=== PATIENT | male | born 1975 | race African-American/Black ===

== ENCOUNTER 2020-09-23 11:18 | Inpatient (IN) | payer OTHER ==
[2020-09-23 11:55] VITALS: BMI 20.7
[2020-09-23] MEDS ORDERED: MAGNESIUM HYDROX 2400MG/30ML ORAL SUSPENSION 30 ML CUP PO PRN (17:16)
[2020-09-23] MEDS ORDERED: NALOXONE HCL 0.4 MG/ML VIAL IM PRN (17:16)
[2020-09-23] MEDS ORDERED: P-EPHED 60MG/TRIPROLIDI 2.5MG TABLET PO PRN (17:16)
[2020-09-23] MEDS ORDERED: LOPERAMIDE HCL 2 MG CAPSULE PO PRN (17:16)
[2020-09-23] MEDS ORDERED: guaiFENesin 200 MG/10 ML 10 ML UNIT-DOSE CUPS PO PRN (17:16)
[2020-09-23] MEDS ORDERED: MAG HYDROX/AL HYDROX/SIMETH 30 ML UNIT-DOSE CUP PO PRN (17:16)
[2020-09-23] MEDS ORDERED: NICOTINE POLACRILEX 2 MG GUM BC PRN (17:16)
[2020-09-23] MEDS ORDERED: MAGNESIUM CITRATE 300 ML BOTTLE PO PRN (17:16)
[2020-09-23] MEDS ORDERED: ACETAMINOPHEN 325 MG TABLET (FP) PO PRN (17:16)
[2020-09-23] MEDS: hydrOXYzine PAMOATE 25 MG CAPSULE (FP) PO SCH ×2 (18:23→23:13)
[2020-09-23] MEDS: PRENATAL VITAMINS W/ FOLIC ACID TABLET (FP) PO SCH (18:23)
[2020-09-23] MEDS: NICOTINE 21 MG/24 HOURS TOPICAL PATCH TD SCH (18:25)
[2020-09-23] MEDS: MELATONIN 5 MG TABLETS PO SCH (23:12)
[2020-09-23] MEDS: THIAMINE HCL 100 MG TABLET (FP) PO SCH (23:13)
[2020-09-24] MEDS: hydrOXYzine PAMOATE 25 MG CAPSULE (FP) PO SCH ×3 (06:38→13:52)
[2020-09-24] MEDS: NICOTINE 21 MG/24 HOURS TOPICAL PATCH TD SCH (09:39)
[2020-09-24] MEDS: PRENATAL VITAMINS W/ FOLIC ACID TABLET (FP) PO SCH (09:39)
[2020-09-24] MEDS: IBUPROFEN 400 MG TABLET (FP) PO PRN (10:03)
[2020-09-24] MEDS ORDERED: PT OWN MED DRAWER 7, Y5N ONE ×2 (10:09→20:47)
[2020-09-24 11:03] LABS: CALCIUM 9.1 mg/dL (8.5-10.1); HEMATOCRIT 43.8 % (35.4-49); MCH 32.5 pg (25.7-33.7); MCHC 34.2 g/dl (32.0-35.9); MEAN PLT VOLUME 9.6 fl (7.5-11.1); PLATELET COUNT 215 K/MM3 (134-434); RBC 4.61 M/mm3 (4.00-5.60); RDW 13.8 % (11.9-15.9); WHITE BLOOD COUNT 5.8 K/mm3 (4.0-10.0)
[2020-09-24 11:04] LABS: ALBUMIN 3.8 g/dl (3.4-5.0); BLOOD UREA NITROGEN 10.2 mg/dL (7-18)
[2020-09-24 11:07] LABS: CREATININE 1.2 mg/dL (0.55-1.3)
[2020-09-24 11:09] LABS: BILIRUBIN,TOTAL 0.8 mg/dL (0.2-1)
[2020-09-24] MEDS ORDERED: hydrOXYzine PAMOATE 25 MG CAPSULE (FP) PO PRN (14:20)
[2020-09-24 14:42] LABS: PH,URINE 6.5 (5.0-8.0); URINE APPEARANCE CLEAR; URINE BILIRUBIN NEGATIVE (NEGATIVE); URINE COLOR YELLOW; URINE GLUCOSE (UA) NEGATIVE (NEGATIVE); URINE KETONE NEGATIVE (NEGATIVE); URINE LEUK ESTERASE NEGATIVE (NEGATIVE); URINE NITRITE NEGATIVE (NEGATIVE); URINE PROTEIN NEGATIVE (NEGATIVE)
[2020-09-24] MEDS: LIDOCAINE VISCOUS 2% ORAL/TOP 20 ML UNIT-DOSE CUP MM PRN (17:49)
[2020-09-24] MEDS: AMOXICILLIN 500 MG CAPSULE (FP) PO SCH (21:11)
[2020-09-24] MEDS: THIAMINE HCL 100 MG TABLET (FP) PO SCH (21:12)
[2020-09-24] MEDS: MELATONIN 5 MG TABLETS PO SCH (21:12)
[2020-09-25] MEDS ORDERED: PT OWN MED DRAWER 7, Y5N ONE ×4 (03:17→20:32)
[2020-09-25] MEDS: AMOXICILLIN 500 MG CAPSULE (FP) PO SCH ×3 (06:43→21:34)
[2020-09-25] MEDS: NICOTINE 21 MG/24 HOURS TOPICAL PATCH TD SCH (09:46)
[2020-09-25] MEDS: PRENATAL VITAMINS W/ FOLIC ACID TABLET (FP) PO SCH (09:46)
[2020-09-25] MEDS: SODIUM CHLORIDE NASAL SPRAY 44 ML BOTTLE NS PRN ×2 (09:47→21:34)
[2020-09-25] MEDS: LIDOCAINE VISCOUS 2% ORAL/TOP 20 ML UNIT-DOSE CUP MM PRN (21:34)
[2020-09-25] MEDS: MELATONIN 5 MG TABLETS PO SCH (21:35)
[2020-09-25] MEDS: THIAMINE HCL 100 MG TABLET (FP) PO SCH (21:35)
[2020-09-26] MEDS ORDERED: PT OWN MED DRAWER 7, Y5N ONE ×4 (03:37→18:34)
[2020-09-26] MEDS: AMOXICILLIN 500 MG CAPSULE (FP) PO SCH ×3 (06:55→21:19)
[2020-09-26] MEDS: NICOTINE 21 MG/24 HOURS TOPICAL PATCH TD SCH (09:48)
[2020-09-26] MEDS: PRENATAL VITAMINS W/ FOLIC ACID TABLET (FP) PO SCH (09:48)
[2020-09-26] MEDS: SODIUM CHLORIDE NASAL SPRAY 44 ML BOTTLE NS PRN (09:48)
[2020-09-26] MEDS ORDERED: HYDROCORTISONE 1% TOPICAL CREAM 30 GM TUBE TP PRN (14:27)
[2020-09-26] MEDS: THIAMINE HCL 100 MG TABLET (FP) PO SCH (21:18)
[2020-09-26] MEDS: MELATONIN 5 MG TABLETS PO SCH (21:19)
[2020-09-27] MEDS ORDERED: PT OWN MED DRAWER 7, Y5N ONE ×2 (03:17→19:55)
[2020-09-27] MEDS: AMOXICILLIN 500 MG CAPSULE (FP) PO SCH ×3 (06:35→21:05)
[2020-09-27] MEDS: PRENATAL VITAMINS W/ FOLIC ACID TABLET (FP) PO SCH (09:36)
[2020-09-27] MEDS: NICOTINE 21 MG/24 HOURS TOPICAL PATCH TD SCH (09:36)
[2020-09-27] MEDS: IBUPROFEN 400 MG TABLET (FP) PO PRN (09:38)
[2020-09-27] MEDS: SODIUM CHLORIDE NASAL SPRAY 44 ML BOTTLE NS PRN ×2 (09:39→21:06)
[2020-09-27 10:07] LABS: SARS-CoV-2 NAA Not Detected (Not Detected)
[2020-09-27] MEDS: THIAMINE HCL 100 MG TABLET (FP) PO SCH (21:06)
[2020-09-27] MEDS: MELATONIN 5 MG TABLETS PO SCH (21:06)
[2020-09-28] MEDS: AMOXICILLIN 500 MG CAPSULE (FP) PO SCH ×3 (06:35→21:06)
[2020-09-28] MEDS: NICOTINE 21 MG/24 HOURS TOPICAL PATCH TD SCH (09:22)
[2020-09-28] MEDS: PRENATAL VITAMINS W/ FOLIC ACID TABLET (FP) PO SCH (09:23)
[2020-09-28] MEDS: SODIUM CHLORIDE NASAL SPRAY 44 ML BOTTLE NS PRN (09:23)
[2020-09-28] MEDS: IBUPROFEN 400 MG TABLET (FP) PO PRN ×2 (09:23→21:08)
[2020-09-28] MEDS ORDERED: PT OWN MED DRAWER 7, Y5N ONE ×2 (13:01→19:24)
[2020-09-28] MEDS: THIAMINE HCL 100 MG TABLET (FP) PO SCH (21:06)
[2020-09-28] MEDS: MELATONIN 5 MG TABLETS PO SCH (21:08)
[2020-09-29 07:32] VITALS: TEMP 97.3
[2020-09-29] MEDS: AMOXICILLIN 500 MG CAPSULE (FP) PO SCH (07:44)
[2020-09-29] MEDS ORDERED: PT OWN MED DRAWER 7, Y5N ONE (09:16)
[2020-09-29] MEDS: PRENATAL VITAMINS W/ FOLIC ACID TABLET (FP) PO SCH (09:51)
[2020-09-29] MEDS: NICOTINE 21 MG/24 HOURS TOPICAL PATCH TD SCH (09:52)
[2020-09-29] MEDS: SODIUM CHLORIDE NASAL SPRAY 44 ML BOTTLE NS PRN (09:52)
[2020-09-29 11:16] VITALS: BP 130/79; PULSE 73
== END 2020-09-29 11:19 | disposition left against medical advice (07) | DRG 770 ==
LOC: YASAS 11:18 → Y3E 17:00
PROVIDERS: ADMIT Allergy & Immunology; ATTEND Allergy & Immunology
PROC: HZ42ZZZ Group Counseling for Substance Abuse Treatment, Cognitive-Behavioral (ICD-10-PCS; principal; 2020-09-23)
DX: F11.20 Opioid dependence, uncomplicated (principal); F14.20 Cocaine dependence, uncomplicated; F19.20 Other psychoactive substance dependence, uncomplicated; F17.210 Nicotine dependence, cigarettes, uncomplicated; I10 Essential (primary) hypertension; K04.7 Periapical abscess without sinus; K02.9 Dental caries, unspecified
CPT/HCPCS: 36415; 80053; 81003; 85027; 86780; C9803; U0003; U0005

== ENCOUNTER 2020-12-18 20:32 | Inpatient (IN) | payer OTHER ==
[2020-12-19 00:21] VITALS: BMI 20.5
[2020-12-19] MEDS ORDERED: P-EPHED 60MG/TRIPROLIDI 2.5MG TABLET PO PRN (01:17)
[2020-12-19] MEDS ORDERED: guaiFENesin 200 MG/10 ML 10 ML UNIT-DOSE CUPS PO PRN (01:17)
[2020-12-19] MEDS ORDERED: LOPERAMIDE HCL 2 MG CAPSULE PO PRN (01:17)
[2020-12-19] MEDS ORDERED: ACETAMINOPHEN 325 MG TABLET (FP) PO PRN (01:17)
[2020-12-19] MEDS ORDERED: MAGNESIUM HYDROX 2400MG/30ML ORAL SUSPENSION 30 ML CUP PO PRN (01:17)
[2020-12-19] MEDS ORDERED: MAG HYDROX/AL HYDROX/SIMETH 30 ML UNIT-DOSE CUP PO PRN (01:17)
[2020-12-19] MEDS ORDERED: MAGNESIUM CITRATE 300 ML BOTTLE PO PRN (01:17)
[2020-12-19] MEDS: PRENATAL VITAMINS W/ FOLIC ACID TABLET (FP) PO SCH (10:10)
[2020-12-19] MEDS: HYDROCORTISONE 1% TOPICAL CREAM 30 GM TUBE TP SCH ×2 (11:02→21:09)
[2020-12-19] MEDS: CARBAMIDE PEROXIDE 6.5% OTIC 15 ML BOTTLE AU SCH ×2 (11:03→21:09)
[2020-12-19] MEDS ORDERED: ARTIFICIAL TEARS (POLYVINYL ALCOHOL) OPTH DROPS OU PRN (11:16)
[2020-12-19 13:12] LABS: HEMATOCRIT 43.6 % (35.4-49); HEMOGLOBIN 14.8 GM/dL (11.7-16.9); MCH 31.7 pg (25.7-33.7); MEAN CELL VOLUME 93.4 fl (80-96); MEAN PLT VOLUME 8.6 fl (7.5-11.1); PLATELET COUNT 224 10^3/uL (134-434); RBC 4.66 M/mm3 (4.00-5.60); RDW 14.5 % (11.9-15.9); WHITE BLOOD COUNT 5.4 K/mm3 (4.0-10.0)
[2020-12-19 13:25] LABS: BILIRUBIN,TOTAL 1.7 mg/dL (0.2-1); TOT PROT 7.3 g/dl (6.4-8.2)
[2020-12-19 13:28] LABS: BLOOD UREA NITROGEN 20.9 mg/dL (7-18)
[2020-12-19 13:29] LABS: CALCIUM 9.4 mg/dL (8.5-10.1); CREATININE 1.2 mg/dL (0.55-1.3)
[2020-12-19 14:08] LABS: HIV INTERPRETATION NEGATIVE (NEGATIVE)
[2020-12-19] MEDS: COLLOIDAL OATMEAL 1 BAR EACH TP PRN (14:47)
[2020-12-19] MEDS: MINERAL OIL/PETROLAT/WATER TOPICAL CREAM 113 GM JAR TP SCH (14:48)
[2020-12-19] MEDS: SODIUM CHLORIDE NASAL SPRAY 44 ML BOTTLE NS PRN (14:48)
[2020-12-19 16:46] LABS: EPI CELLS 7 /uL (0-25.1); HYALINE CASTS 3 /uL (0-3.1); URINE APPEARANCE CLEAR; URINE BACTERIA 17 /uL (0-1359); URINE BILIRUBIN 1+ (NEGATIVE); URINE COLOR DK YELLOW; URINE GLUCOSE (UA) NEGATIVE (NEGATIVE); URINE KETONE TRACE (NEGATIVE); URINE LEUK ESTERASE NEGATIVE (NEGATIVE); URINE NITRITE NEGATIVE (NEGATIVE); URINE PROTEIN 2+ (NEGATIVE); URINE RBC 18 /uL (0-23.9); URINE WBC 8 /uL (0-25.8)
[2020-12-19] MEDS: THIAMINE HCL 100 MG TABLET (FP) PO SCH (21:08)
[2020-12-19] MEDS: MELATONIN 5 MG TABLETS PO SCH (21:09)
[2020-12-20] MEDS ORDERED: PT OWN MED DRAWER 7, Y5N ONE ×2 (09:31→21:33)
[2020-12-20] MEDS: PRENATAL VITAMINS W/ FOLIC ACID TABLET (FP) PO SCH (11:08)
[2020-12-20] MEDS: CARBAMIDE PEROXIDE 6.5% OTIC 15 ML BOTTLE AU SCH ×2 (11:08→21:39)
[2020-12-20] MEDS: MINERAL OIL/PETROLAT/WATER TOPICAL CREAM 113 GM JAR TP SCH (11:08)
[2020-12-20] MEDS: HYDROCORTISONE 1% TOPICAL CREAM 30 GM TUBE TP SCH ×2 (11:08→21:39)
[2020-12-20] MEDS: BENZOCAINE 20 % GEL TUBE MM PRN (18:10)
[2020-12-20] MEDS ORDERED: MASKS NR ONE (19:34)
[2020-12-20] MEDS: THIAMINE HCL 100 MG TABLET (FP) PO SCH (21:38)
[2020-12-20] MEDS: MELATONIN 5 MG TABLETS PO SCH (21:39)
[2020-12-21] MEDS: MINERAL OIL/PETROLAT/WATER TOPICAL CREAM 113 GM JAR TP SCH (09:35)
[2020-12-21] MEDS: HYDROCORTISONE 1% TOPICAL CREAM 30 GM TUBE TP SCH ×2 (09:35→23:00)
[2020-12-21] MEDS: PRENATAL VITAMINS W/ FOLIC ACID TABLET (FP) PO SCH (09:35)
[2020-12-21] MEDS: CARBAMIDE PEROXIDE 6.5% OTIC 15 ML BOTTLE AU SCH ×2 (09:36→22:59)
[2020-12-21] MEDS ORDERED: PT OWN MED DRAWER 7, Y5N ONE (20:30)
[2020-12-21] MEDS: MELATONIN 5 MG TABLETS PO SCH (23:00)
[2020-12-21] MEDS: THIAMINE HCL 100 MG TABLET (FP) PO SCH (23:00)
[2020-12-22] MEDS ORDERED: PT OWN MED DRAWER 7, Y5N ONE ×3 (08:47→15:44)
[2020-12-22] MEDS: MINERAL OIL/PETROLAT/WATER TOPICAL CREAM 113 GM JAR TP SCH (09:36)
[2020-12-22] MEDS: PRENATAL VITAMINS W/ FOLIC ACID TABLET (FP) PO SCH (09:36)
[2020-12-22] MEDS: CARBAMIDE PEROXIDE 6.5% OTIC 15 ML BOTTLE AU SCH (09:36)
[2020-12-22] MEDS: HYDROCORTISONE 1% TOPICAL CREAM 30 GM TUBE TP SCH (09:36)
[2020-12-22] MEDS ORDERED: PERMETHRIN 5% TOPICAL CREAM 60 GM TUBE TP ONE (10:43)
[2020-12-22] MEDS: AMOXICILLIN 500 MG CAPSULE (FP) PO SCH (21:19)
[2020-12-22] MEDS: THIAMINE HCL 100 MG TABLET (FP) PO SCH (21:19)
[2020-12-22] MEDS: MELATONIN 5 MG TABLETS PO SCH (21:19)
[2020-12-22] MEDS: IBUPROFEN 400 MG TABLET (FP) PO PRN (21:21)
[2020-12-23] MEDS: PRENATAL VITAMINS W/ FOLIC ACID TABLET (FP) PO SCH (09:45)
[2020-12-23] MEDS: MINERAL OIL/PETROLAT/WATER TOPICAL CREAM 113 GM JAR TP SCH (09:46)
[2020-12-23] MEDS: IBUPROFEN 400 MG TABLET (FP) PO PRN ×2 (09:47→21:24)
[2020-12-23] MEDS: AMOXICILLIN 500 MG CAPSULE (FP) PO SCH ×2 (10:12→21:21)
[2020-12-23] MEDS: COLLOIDAL OATMEAL 1 BAR EACH TP PRN (11:15)
[2020-12-23] MEDS: THIAMINE HCL 100 MG TABLET (FP) PO SCH (21:21)
[2020-12-23] MEDS: MELATONIN 5 MG TABLETS PO SCH (21:22)
[2020-12-23] MEDS ORDERED: QUEtiapine FUMARATE 100 MG TABLET (FP) PO SCH (22:00)
[2020-12-24] MEDS: PRENATAL VITAMINS W/ FOLIC ACID TABLET (FP) PO SCH (09:32)
[2020-12-24] MEDS: AMOXICILLIN 500 MG CAPSULE (FP) PO SCH ×2 (09:32→21:36)
[2020-12-24] MEDS: MINERAL OIL/PETROLAT/WATER TOPICAL CREAM 113 GM JAR TP SCH (09:32)
[2020-12-24] MEDS: IBUPROFEN 400 MG TABLET (FP) PO PRN (09:34)
[2020-12-24] MEDS ORDERED: PT OWN MED DRAWER 7, Y5N ONE (19:42)
[2020-12-24] MEDS: THIAMINE HCL 100 MG TABLET (FP) PO SCH (21:19)
[2020-12-24] MEDS: QUEtiapine FUMARATE 50 MG TABLET PO SCH (21:22)
[2020-12-24] MEDS: MELATONIN 5 MG TABLETS PO SCH (21:23)
[2020-12-25] MEDS ORDERED: PT OWN MED DRAWER 7, Y5N ONE ×2 (08:13→09:43)
[2020-12-25] MEDS: PRENATAL VITAMINS W/ FOLIC ACID TABLET (FP) PO SCH (09:42)
[2020-12-25] MEDS: AMOXICILLIN 500 MG CAPSULE (FP) PO SCH ×2 (09:42→21:40)
[2020-12-25] MEDS: BENZOCAINE 20 % GEL TUBE MM PRN (09:44)
[2020-12-25] MEDS: IBUPROFEN 400 MG TABLET (FP) PO PRN (09:44)
[2020-12-25] MEDS: MINERAL OIL/PETROLAT/WATER TOPICAL CREAM 113 GM JAR TP SCH (09:59)
[2020-12-25 13:41] LABS: URINE APPEARANCE CLEAR; URINE BILIRUBIN NEGATIVE (NEGATIVE); URINE COLOR YELLOW; URINE GLUCOSE (UA) NEGATIVE (NEGATIVE); URINE KETONE NEGATIVE (NEGATIVE); URINE LEUK ESTERASE NEGATIVE (NEGATIVE); URINE NITRITE NEGATIVE (NEGATIVE); URINE PROTEIN NEGATIVE (NEGATIVE)
[2020-12-25] MEDS: THIAMINE HCL 100 MG TABLET (FP) PO SCH (21:38)
[2020-12-25] MEDS: QUEtiapine FUMARATE 50 MG TABLET PO SCH (21:38)
[2020-12-25] MEDS: MELATONIN 5 MG TABLETS PO SCH (21:39)
[2020-12-26] MEDS ORDERED: PT OWN MED DRAWER 7, Y5N ONE (08:17)
[2020-12-26] MEDS: PRENATAL VITAMINS W/ FOLIC ACID TABLET (FP) PO SCH (09:41)
[2020-12-26] MEDS: AMOXICILLIN 500 MG CAPSULE (FP) PO SCH ×2 (09:41→21:11)
[2020-12-26] MEDS: BENZOCAINE 20 % GEL TUBE MM PRN (09:42)
[2020-12-26] MEDS: IBUPROFEN 400 MG TABLET (FP) PO PRN (09:42)
[2020-12-26] MEDS: MINERAL OIL/PETROLAT/WATER TOPICAL CREAM 113 GM JAR TP SCH (09:46)
[2020-12-26] MEDS: QUEtiapine FUMARATE 50 MG TABLET PO SCH (21:11)
[2020-12-26] MEDS: THIAMINE HCL 100 MG TABLET (FP) PO SCH (21:11)
[2020-12-26] MEDS: MELATONIN 5 MG TABLETS PO SCH (21:12)
[2020-12-27] MEDS ORDERED: PT OWN MED DRAWER 7, Y5N ONE ×2 (08:43→10:06)
[2020-12-27] MEDS: AMOXICILLIN 500 MG CAPSULE (FP) PO SCH ×2 (09:37→21:26)
[2020-12-27] MEDS: PRENATAL VITAMINS W/ FOLIC ACID TABLET (FP) PO SCH (09:37)
[2020-12-27] MEDS: MINERAL OIL/PETROLAT/WATER TOPICAL CREAM 113 GM JAR TP SCH (09:38)
[2020-12-27] MEDS: SODIUM CHLORIDE NASAL SPRAY 44 ML BOTTLE NS PRN ×2 (09:39→21:30)
[2020-12-27] MEDS: QUEtiapine FUMARATE 50 MG TABLET PO SCH (21:26)
[2020-12-27] MEDS: THIAMINE HCL 100 MG TABLET (FP) PO SCH (21:26)
[2020-12-28] MEDS: AMOXICILLIN 500 MG CAPSULE (FP) PO SCH ×2 (09:30→21:31)
[2020-12-28] MEDS: PRENATAL VITAMINS W/ FOLIC ACID TABLET (FP) PO SCH (09:30)
[2020-12-28] MEDS: MINERAL OIL/PETROLAT/WATER TOPICAL CREAM 113 GM JAR TP SCH (09:31)
[2020-12-28] MEDS ORDERED: PT OWN MED DRAWER 7, Y5N ONE (19:16)
[2020-12-28] MEDS: QUEtiapine FUMARATE 50 MG TABLET PO SCH (21:31)
[2020-12-28] MEDS: THIAMINE HCL 100 MG TABLET (FP) PO SCH (21:31)
[2020-12-29 06:45] VITALS: BP 130/80; PULSE 74; TEMP 96.9
[2020-12-29] MEDS ORDERED: PT OWN MED DRAWER 7, Y5N ONE (08:33)
[2020-12-29] MEDS: MINERAL OIL/PETROLAT/WATER TOPICAL CREAM 113 GM JAR TP SCH (09:53)
[2020-12-29] MEDS: AMOXICILLIN 500 MG CAPSULE (FP) PO SCH (09:53)
[2020-12-29] MEDS: PRENATAL VITAMINS W/ FOLIC ACID TABLET (FP) PO SCH (09:53)
== END 2020-12-29 20:35 | disposition left against medical advice (07) | DRG 770 ==
LOC: YASAS 20:32 → Y3E 12-19 01:33
PROVIDERS: ADMIT Allergy & Immunology; ATTEND Allergy & Immunology
PROC: HZ42ZZZ Group Counseling for Substance Abuse Treatment, Cognitive-Behavioral (ICD-10-PCS; principal; 2020-12-19)
DX: F14.20 Cocaine dependence, uncomplicated (principal); F11.10 Opioid abuse, uncomplicated; F16.20 Hallucinogen dependence, uncomplicated; F17.210 Nicotine dependence, cigarettes, uncomplicated; F19.282 Other psychoactive substance dependence with psychoactive substance-induced sleep disorder; F19.24 Other psychoactive substance dependence with psychoactive substance-induced mood disorder; F42.4 Excoriation (skin-picking) disorder; I10 Essential (primary) hypertension; K02.9 Dental caries, unspecified; H61.23 Impacted cerumen, bilateral; Z20.7 Contact with and (suspected) exposure to pediculosis, acariasis and other infestations; Z87.828 Personal history of other (healed) physical injury and trauma; Z98.890 Other specified postprocedural states
CPT/HCPCS: 36415; 80053; 81003; 85027; 86780; 87389; C9803; U0003; U0005

== ENCOUNTER 2021-03-11 14:57 | Inpatient (IN) | payer OTHER ==
[2021-03-11 15:54] VITALS: BMI 20.9
[2021-03-11] MEDS ORDERED: NALOXONE (NARCAN) HCL 4 MG/0.1 ML SPRAY NS PRN (19:37)
[2021-03-11] MEDS ORDERED: METHOCARBAMOL 500 MG TABLET PO PRN (19:37)
[2021-03-11] MEDS ORDERED: MAGNESIUM CITRATE 300 ML BOTTLE PO PRN (19:37)
[2021-03-11] MEDS ORDERED: BISMUTH SUBSALICYLATE 524 MG/30 ML PO PRN (19:37)
[2021-03-11] MEDS ORDERED: ACETAMINOPHEN 325 MG TABLET (FP) PO PRN ×2 (19:37)
[2021-03-11] MEDS ORDERED: MENTHOL/PHENOL 1 EACH UD MM PRN (19:37)
[2021-03-11] MEDS ORDERED: MAG HYDROX/AL HYDROX/SIMETH 30 ML UNIT-DOSE CUP PO PRN (19:37)
[2021-03-11] MEDS ORDERED: MAGNESIUM HYDROX 2400MG/30ML ORAL SUSPENSION 30 ML CUP PO PRN (19:37)
[2021-03-11] MEDS ORDERED: NICOTINE 10 MG CARTRIDGE (INHALER) IH PRN (19:37)
[2021-03-11] MEDS ORDERED: IBUPROFEN 400 MG TABLET (FP) PO PRN (19:37)
[2021-03-11] MEDS ORDERED: ONDANSETRON *ODT* 4 MG TABLET SL PRN (19:37)
[2021-03-11] MEDS: THIAMINE HCL 100 MG TABLET (FP) PO SCH ×2 (22:41→22:46)
[2021-03-11] MEDS: hydrOXYzine PAMOATE 25 MG CAPSULE (FP) PO SCH ×2 (22:41→22:46)
[2021-03-11] MEDS: MELATONIN 5 MG TABLETS PO SCH ×2 (22:41→22:45)
[2021-03-11] MEDS: IBUPROFEN 400 MG TABLET (FP) PO PRN (22:47)
[2021-03-12] MEDS: AMOXICILLIN 875 MG PO SCH ×2 (05:51→22:27)
[2021-03-12] MEDS: hydrOXYzine PAMOATE 25 MG CAPSULE (FP) PO SCH ×5 (05:52→22:27)
[2021-03-12] MEDS: IBUPROFEN 400 MG TABLET (FP) PO PRN ×2 (07:04→18:30)
[2021-03-12 08:03] LABS: HEMATOCRIT 41.4 % (35.4-49); HEMOGLOBIN 13.9 GM/dL (11.7-16.9); MCH 31.8 pg (25.7-33.7); MCHC 33.5 g/dl (32.0-35.9); MEAN CELL VOLUME 95.1 fl (80-96); MEAN PLT VOLUME 9.2 fl (7.5-11.1); PLATELET COUNT 219 10^3/uL (134-434); RBC 4.36 M/mm3 (4.00-5.60); RDW 14.5 % (11.9-15.9); WHITE BLOOD COUNT 5.4 K/mm3 (4.0-10.0)
[2021-03-12 08:23] LABS: ALBUMIN 3.6 g/dl (3.4-5.0); BLOOD UREA NITROGEN 13.7 mg/dL (7-18); CALCIUM 8.8 mg/dL (8.5-10.1)
[2021-03-12 08:26] LABS: CREATININE 1.2 mg/dL (0.55-1.3)
[2021-03-12 08:28] LABS: BILIRUBIN,TOTAL 1.3 mg/dL (0.2-1); TOT PROT 6.8 g/dl (6.4-8.2)
[2021-03-12 08:57] LABS: HIV INTERPRETATION NEGATIVE (NEGATIVE)
[2021-03-12] MEDS: ARTIFICIAL TEARS (POLYVINYL ALCOHOL) OPTH DROPS OU SCH ×2 (10:58→22:26)
[2021-03-12] MEDS: MELATONIN 5 MG TABLETS PO SCH (22:27)
[2021-03-12] MEDS: THIAMINE HCL 100 MG TABLET (FP) PO SCH (22:27)
[2021-03-13] MEDS: hydrOXYzine PAMOATE 25 MG CAPSULE (FP) PO SCH ×2 (07:00→10:39)
[2021-03-13] MEDS ORDERED: MASKS NR ONE (07:37)
[2021-03-13] MEDS: AMOXICILLIN 875 MG PO SCH (10:38)
[2021-03-13] MEDS: IBUPROFEN 400 MG TABLET (FP) PO PRN (10:39)
[2021-03-13] MEDS: ARTIFICIAL TEARS (POLYVINYL ALCOHOL) OPTH DROPS OU SCH (10:39)
[2021-03-13] MEDS ORDERED: cloNIDine HCL 0.1 MG TABLET PO ONE (11:15)
[2021-03-13 13:02] VITALS: BP 123/82; PULSE 74; TEMP 97.1
== END 2021-03-13 12:48 | disposition other institution (70) | DRG 773 ==
LOC: YASAS 14:57 → Y6N 20:03
PROVIDERS: ADMIT Allergy & Immunology; ATTEND Allergy & Immunology
PROC: HZ2ZZZZ Detoxification Services for Substance Abuse Treatment (ICD-10-PCS; principal; 2021-03-11)
DX: F11.23 Opioid dependence with withdrawal (principal); F14.20 Cocaine dependence, uncomplicated; F16.20 Hallucinogen dependence, uncomplicated; F12.20 Cannabis dependence, uncomplicated; F17.210 Nicotine dependence, cigarettes, uncomplicated; F19.24 Other psychoactive substance dependence with psychoactive substance-induced mood disorder; F41.8 Other specified anxiety disorders; I10 Essential (primary) hypertension; K04.7 Periapical abscess without sinus; Z56.0 Unemployment, unspecified
CPT/HCPCS: 36415; 80053; 82247; 85027; 86780; 87389; J0735

== ENCOUNTER 2021-03-13 12:54 | Inpatient (IN) | payer OTHER ==
[2021-03-13] MEDS ORDERED: NICOTINE 10 MG CARTRIDGE (INHALER) IH PRN (13:44)
[2021-03-13] MEDS ORDERED: hydrOXYzine PAMOATE 25 MG CAPSULE (FP) PO PRN (13:44)
[2021-03-13] MEDS ORDERED: LOPERAMIDE HCL 2 MG CAPSULE PO PRN (13:44)
[2021-03-13] MEDS ORDERED: IBUPROFEN 400 MG TABLET (FP) PO PRN (13:44)
[2021-03-13] MEDS ORDERED: P-EPHED 60MG/TRIPROLIDI 2.5MG TABLET PO PRN (13:44)
[2021-03-13] MEDS ORDERED: MENTHOL/PHENOL 1 EACH UD MM PRN (13:44)
[2021-03-13] MEDS ORDERED: MAGNESIUM HYDROX 2400MG/30ML ORAL SUSPENSION 30 ML CUP PO PRN (13:44)
[2021-03-13] MEDS ORDERED: ACETAMINOPHEN 325 MG TABLET (FP) PO PRN (13:44)
[2021-03-13] MEDS ORDERED: guaiFENesin 200 MG/10 ML 10 ML UNIT-DOSE CUPS PO PRN (13:44)
[2021-03-13] MEDS ORDERED: MAGNESIUM CITRATE 300 ML BOTTLE PO PRN (13:44)
[2021-03-13] MEDS ORDERED: MAG HYDROX/AL HYDROX/SIMETH 30 ML UNIT-DOSE CUP PO PRN (13:44)
[2021-03-13] MEDS: IBUPROFEN 400 MG TABLET (FP) PO PRN (18:14)
[2021-03-13] MEDS: ARTIFICIAL TEARS (POLYVINYL ALCOHOL) OPTH DROPS OU PRN ×2 (18:17→21:29)
[2021-03-13] MEDS: PATIENT'S OWN MEDICATION (NON-FORMULARY) (Amoxicillin [Amoxicillin] 875 MG Tablet) PO SCH (21:29)
[2021-03-13] MEDS: MELATONIN 5 MG TABLETS PO SCH (21:51)
[2021-03-13] MEDS: THIAMINE HCL 100 MG TABLET (FP) PO SCH (21:51)
[2021-03-13] MEDS ORDERED: PATIENT'S OWN MEDICATION (NON-FORMULARY) (Ibuprofen [Ibuprofen] 800 MG Tablet) PO SCH (22:00)
[2021-03-14] MEDS: NICOTINE 7 MG/24 HOURS TOPICAL PATCH TD SCH (10:01)
[2021-03-14] MEDS: PATIENT'S OWN MEDICATION (NON-FORMULARY) (Amoxicillin [Amoxicillin] 875 MG Tablet) PO SCH ×2 (10:01→21:26)
[2021-03-14] MEDS: PRENATAL VITAMINS W/ FOLIC ACID TABLET (FP) PO SCH (10:02)
[2021-03-14] MEDS: IBUPROFEN 400 MG TABLET (FP) PO PRN ×2 (10:02→21:28)
[2021-03-14] MEDS: ARTIFICIAL TEARS (POLYVINYL ALCOHOL) OPTH DROPS OU PRN ×2 (10:04→21:27)
[2021-03-14] MEDS: MELATONIN 5 MG TABLETS PO SCH (21:26)
[2021-03-14] MEDS: THIAMINE HCL 100 MG TABLET (FP) PO SCH (21:27)
[2021-03-15] MEDS: PRENATAL VITAMINS W/ FOLIC ACID TABLET (FP) PO SCH (09:54)
[2021-03-15] MEDS: IBUPROFEN 400 MG TABLET (FP) PO PRN ×2 (09:54→21:24)
[2021-03-15] MEDS: PATIENT'S OWN MEDICATION (NON-FORMULARY) (Amoxicillin [Amoxicillin] 875 MG Tablet) PO SCH ×2 (09:54→21:23)
[2021-03-15] MEDS: NICOTINE 7 MG/24 HOURS TOPICAL PATCH TD SCH (09:54)
[2021-03-15] MEDS: ARTIFICIAL TEARS (POLYVINYL ALCOHOL) OPTH DROPS OU PRN ×2 (09:55→21:22)
[2021-03-15] MEDS: MELATONIN 5 MG TABLETS PO SCH (21:40)
[2021-03-15] MEDS: THIAMINE HCL 100 MG TABLET (FP) PO SCH (21:40)
[2021-03-16] MEDS: IBUPROFEN 400 MG TABLET (FP) PO PRN (09:45)
[2021-03-16] MEDS: PATIENT'S OWN MEDICATION (NON-FORMULARY) (Amoxicillin [Amoxicillin] 875 MG Tablet) PO SCH ×2 (09:45→21:48)
[2021-03-16] MEDS: NICOTINE 7 MG/24 HOURS TOPICAL PATCH TD SCH (09:47)
[2021-03-16] MEDS: PRENATAL VITAMINS W/ FOLIC ACID TABLET (FP) PO SCH (09:47)
[2021-03-16] MEDS: ARTIFICIAL TEARS (POLYVINYL ALCOHOL) OPTH DROPS OU PRN ×2 (09:48→21:50)
[2021-03-16] MEDS: MELATONIN 5 MG TABLETS PO SCH (21:45)
[2021-03-16] MEDS: THIAMINE HCL 100 MG TABLET (FP) PO SCH (21:49)
[2021-03-17] MEDS: PRENATAL VITAMINS W/ FOLIC ACID TABLET (FP) PO SCH (09:48)
[2021-03-17] MEDS: NICOTINE 7 MG/24 HOURS TOPICAL PATCH TD SCH (09:48)
[2021-03-17] MEDS: ARTIFICIAL TEARS (POLYVINYL ALCOHOL) OPTH DROPS OU PRN (09:49)
[2021-03-17] MEDS: IBUPROFEN 400 MG TABLET (FP) PO PRN ×2 (09:50→22:02)
[2021-03-17] MEDS ORDERED: METHOCARBAMOL 500 MG TABLET PO PRN (10:08)
[2021-03-17] MEDS: THIAMINE HCL 100 MG TABLET (FP) PO SCH (21:59)
[2021-03-17] MEDS ORDERED: PT OWN MED DRAWER 7, Y5N ONE (22:06)
[2021-03-17] MEDS: MELATONIN 5 MG TABLETS PO SCH (23:56)
[2021-03-18] MEDS ORDERED: PT OWN MED DRAWER 7, Y5N ONE ×2 (08:44→20:21)
[2021-03-18] MEDS: NICOTINE 7 MG/24 HOURS TOPICAL PATCH TD SCH (09:51)
[2021-03-18] MEDS: PRENATAL VITAMINS W/ FOLIC ACID TABLET (FP) PO SCH (09:51)
[2021-03-18] MEDS: IBUPROFEN 400 MG TABLET (FP) PO PRN (09:52)
[2021-03-18] MEDS: ARTIFICIAL TEARS (POLYVINYL ALCOHOL) OPTH DROPS OU PRN (09:52)
[2021-03-18] MEDS: MELATONIN 5 MG TABLETS PO SCH (23:28)
[2021-03-18] MEDS: THIAMINE HCL 100 MG TABLET (FP) PO SCH (23:28)
[2021-03-19 07:09] VITALS: BP 146/86; PULSE 71; TEMP 96.8
== END 2021-03-19 08:45 | disposition home or self-care (01) | DRG 772 ==
LOC: YASAS 12:54 → Y5N 12:55 → Y3E 03-16 20:09
PROVIDERS: ADMIT Allergy & Immunology; ATTEND Allergy & Immunology
PROC: HZ42ZZZ Group Counseling for Substance Abuse Treatment, Cognitive-Behavioral (ICD-10-PCS; principal; 2021-03-13)
DX: F11.20 Opioid dependence, uncomplicated (principal); F14.20 Cocaine dependence, uncomplicated; F16.20 Hallucinogen dependence, uncomplicated; F12.20 Cannabis dependence, uncomplicated; F17.210 Nicotine dependence, cigarettes, uncomplicated; K08.89 Other specified disorders of teeth and supporting structures; K04.7 Periapical abscess without sinus

== ENCOUNTER 2021-11-24 13:28 | Inpatient (IN) | payer OTHER ==
[2021-11-24] MEDS ORDERED: DICYCLOMINE HCL 10 MG CAPSULE PO PRN (14:11)
[2021-11-24] MEDS ORDERED: METHOCARBAMOL 500 MG TABLET PO PRN (14:11)
[2021-11-24] MEDS ORDERED: IBUPROFEN 600 MG TABLET (FP) PO PRN (14:11)
[2021-11-24] MEDS ORDERED: MAGNESIUM HYDROX 2400MG/30ML ORAL SUSPENSION 30 ML CUP PO PRN (14:11)
[2021-11-24] MEDS ORDERED: LOPERAMIDE HCL 2 MG CAPSULE PO PRN (14:11)
[2021-11-24] MEDS ORDERED: NICOTINE POLACRILEX 4 MG GUM BUC PRN (14:11)
[2021-11-24] MEDS ORDERED: ACETAMINOPHEN 325 MG TABLET (FP) PO PRN ×2 (14:11)
[2021-11-24] MEDS ORDERED: MAGNESIUM CITRATE 300 ML BOTTLE PO PRN (14:11)
[2021-11-24] MEDS ORDERED: BENZOCAINE/MENTHOL (CHLORASEPTIC ) LOZENGE MM PRN (14:11)
[2021-11-24] MEDS ORDERED: NICOTINE 10 MG CARTRIDGE (INHALER) IH PRN (14:11)
[2021-11-24] MEDS ORDERED: BISMUTH SUBSALICYLATE 524 MG/30 ML PO PRN (14:11)
[2021-11-24] MEDS ORDERED: MAG HYDROX/AL HYDROX/SIMETH 30 ML UNIT-DOSE CUP PO PRN (14:11)
[2021-11-24] MEDS ORDERED: chlordiazePOXIDE HCL 25 MG CAPSULE PO PRN (14:11)
[2021-11-24] MEDS ORDERED: ONDANSETRON *ODT* 4 MG TABLET SL PRN (14:11)
[2021-11-24] MEDS ORDERED: IBUPROFEN 400 MG TABLET (FP) PO PRN (14:11)
[2021-11-24] MEDS ORDERED: ARTIFICIAL TEARS (POLYVINYL ALCOHOL) OPTH DROPS OU PRN (14:14)
[2021-11-24 14:21] VITALS: BMI 21.1
[2021-11-24 17:18] LABS: HEMATOCRIT 43.2 % (35.4-49); HEMOGLOBIN 14.2 GM/dL (11.7-16.9); MCH 29.8 pg (25.7-33.7); MCHC 32.8 g/dl (32.0-35.9); MEAN CELL VOLUME 90.7 fl (80-96); MEAN PLT VOLUME 8.2 fl (7.5-11.1); PLATELET COUNT 264 10^3/uL (134-434); RBC 4.76 M/mm3 (4.00-5.60); RDW 14.3 % (11.9-15.9); WHITE BLOOD COUNT 5.9 K/mm3 (4.0-10.0)
[2021-11-24 17:22] LABS: ALBUMIN 4.2 g/dl (3.4-5.0); BLOOD UREA NITROGEN 11.3 mg/dL (7-18); CALCIUM 9.2 mg/dL (8.5-10.1); CREATININE 1.2 mg/dL (0.55-1.3)
[2021-11-24 17:27] LABS: TOT PROT 7.5 g/dl (6.4-8.2)
[2021-11-24 17:28] LABS: BILIRUBIN,TOTAL 0.4 mg/dL (0.2-1)
[2021-11-24] MEDS: PRENATAL VITAMINS W/ FOLIC ACID TABLET (FP) PO SCH (17:44)
[2021-11-24] MEDS: chlordiazePOXIDE HCL 25 MG CAPSULE PO SCH ×2 (17:45→22:39)
[2021-11-24] MEDS: hydrOXYzine PAMOATE 25 MG CAPSULE (FP) PO SCH ×2 (17:45→22:38)
[2021-11-24] MEDS: THIAMINE HCL 100 MG TABLET (FP) PO SCH (22:38)
[2021-11-24] MEDS: MELATONIN 5 MG TABLETS PO SCH (22:38)
[2021-11-25] MEDS: chlordiazePOXIDE HCL 25 MG CAPSULE PO SCH ×4 (06:19→22:10)
[2021-11-25] MEDS: hydrOXYzine PAMOATE 25 MG CAPSULE (FP) PO SCH ×5 (06:20→22:10)
[2021-11-25] MEDS: PRENATAL VITAMINS W/ FOLIC ACID TABLET (FP) PO SCH (10:31)
[2021-11-25] MEDS: MELATONIN 5 MG TABLETS PO SCH (22:10)
[2021-11-25] MEDS: THIAMINE HCL 100 MG TABLET (FP) PO SCH (22:10)
[2021-11-26] MEDS: hydrOXYzine PAMOATE 25 MG CAPSULE (FP) PO SCH ×5 (05:37→22:41)
[2021-11-26] MEDS: chlordiazePOXIDE HCL 25 MG CAPSULE PO SCH ×4 (05:37→22:41)
[2021-11-26] MEDS: PRENATAL VITAMINS W/ FOLIC ACID TABLET (FP) PO SCH (10:42)
[2021-11-26 13:00] LABS: HIV INTERPRETATION NEGATIVE (NEGATIVE)
[2021-11-26] MEDS: THIAMINE HCL 100 MG TABLET (FP) PO SCH (22:41)
[2021-11-26] MEDS: MELATONIN 5 MG TABLETS PO SCH (22:41)
[2021-11-27] MEDS ORDERED: chlordiazePOXIDE HCL 10 MG CAPSULE PO PRN
[2021-11-27] MEDS: chlordiazePOXIDE HCL 10 MG CAPSULE PO SCH ×2 (06:17→10:25)
[2021-11-27] MEDS: hydrOXYzine PAMOATE 25 MG CAPSULE (FP) PO SCH ×3 (06:18→14:52)
[2021-11-27] MEDS: PRENATAL VITAMINS W/ FOLIC ACID TABLET (FP) PO SCH (10:25)
[2021-11-27 13:39] VITALS: BP 123/77; PULSE 73; TEMP 98
[2021-11-28] MEDS ORDERED: chlordiazePOXIDE HCL 10 MG CAPSULE PO SCH (05:00)
[2021-11-29] MEDS ORDERED: chlordiazePOXIDE HCL 10 MG CAPSULE PO ONE (05:00)
== END 2021-11-27 14:00 | disposition left against medical advice (07) | DRG 770 ==
LOC: YASAS 13:28 → Y3N 14:22
PROVIDERS: ADMIT Allergy & Immunology; ATTEND Surgery
PROC: HZ2ZZZZ Detoxification Services for Substance Abuse Treatment (ICD-10-PCS; principal; 2021-11-24)
DX: F10.230 Alcohol dependence with withdrawal, uncomplicated (principal); F14.20 Cocaine dependence, uncomplicated; F12.20 Cannabis dependence, uncomplicated; F17.210 Nicotine dependence, cigarettes, uncomplicated; I10 Essential (primary) hypertension; Z28.310 Unvaccinated for COVID-19; Z59.02 Unsheltered homelessness
CPT/HCPCS: 36415; 80053; 85027; 86780; 87389; 87811; C9803-CS; U0003; U0005

== ENCOUNTER 2022-01-29 09:37 | Inpatient (IN) | payer OTHER ==
[2022-01-29 11:18] VITALS: BMI 21.9
[2022-01-29] MEDS ORDERED: IBUPROFEN 400 MG TABLET (FP) PO PRN ×2 (12:19→14:43)
[2022-01-29] MEDS ORDERED: MAGNESIUM HYDROX 2400MG/30ML ORAL SUSPENSION 30 ML CUP PO PRN (12:19)
[2022-01-29] MEDS ORDERED: BISMUTH SUBSALICYLATE 262 MG/15 ML BTL PO PRN (12:19)
[2022-01-29] MEDS ORDERED: METHOCARBAMOL 500 MG TABLET PO PRN (12:19)
[2022-01-29] MEDS ORDERED: ONDANSETRON *ODT* 4 MG TABLET SL PRN (12:19)
[2022-01-29] MEDS ORDERED: BENZOCAINE/MENTHOL (CHLORASEPTIC ) LOZENGE MM PRN (12:19)
[2022-01-29] MEDS ORDERED: MAGNESIUM CITRATE 300 ML BOTTLE PO PRN (12:19)
[2022-01-29] MEDS ORDERED: LOPERAMIDE HCL 2 MG CAPSULE PO PRN (12:19)
[2022-01-29] MEDS ORDERED: ACETAMINOPHEN 325 MG TABLET (FP) PO PRN ×2 (12:19)
[2022-01-29] MEDS ORDERED: IBUPROFEN 600 MG TABLET (FP) PO PRN (12:19)
[2022-01-29] MEDS ORDERED: DICYCLOMINE HCL 10 MG CAPSULE PO PRN (12:19)
[2022-01-29] MEDS ORDERED: chlordiazePOXIDE HCL 25 MG CAPSULE PO PRN (12:19)
[2022-01-29] MEDS ORDERED: NICOTINE 10 MG CARTRIDGE (INHALER) IH PRN (12:19)
[2022-01-29] MEDS ORDERED: MAG HYDROX/AL HYDROX/SIMETH 30 ML UNIT-DOSE CUP PO PRN (12:19)
[2022-01-29] MEDS ORDERED: NALOXONE (NARCAN) HCL 4 MG/0.1 ML SPRAY NS PRN (12:24)
[2022-01-29] MEDS: hydrOXYzine PAMOATE 25 MG CAPSULE (FP) PO SCH ×3 (13:55→22:26)
[2022-01-29] MEDS ORDERED: PATIENT'S OWN MEDICATION (NON-FORMULARY) (Ibuprofen [Ibuprofen] 800 MG Tablet) PO SCH (14:00)
[2022-01-29] MEDS: AMOXICILLIN 500 MG CAPSULE (FP) PO SCH ×2 (15:09→22:25)
[2022-01-29 16:47] LABS: HEMATOCRIT 41.5 % (35.4-49); HEMOGLOBIN 14.2 GM/dL (11.7-16.9); MCH 31.2 pg (25.7-33.7); MCHC 34.2 g/dl (32.0-35.9); MEAN CELL VOLUME 91.1 fl (80-96); MEAN PLT VOLUME 8.8 fl (7.5-11.1); PLATELET COUNT 243 10^3/uL (134-434); RBC 4.56 M/mm3 (4.00-5.60); RDW 14.8 % (11.9-15.9); WHITE BLOOD COUNT 5.1 K/mm3 (4.0-10.0)
[2022-01-29 16:54] LABS: CALCIUM 9.1 mg/dL (8.5-10.1)
[2022-01-29 16:55] LABS: ALBUMIN 3.9 g/dl (3.4-5.0); BLOOD UREA NITROGEN 16.6 mg/dL (7-18)
[2022-01-29 16:58] LABS: CREATININE 1.3 mg/dL (0.55-1.3)
[2022-01-29 17:00] LABS: BILIRUBIN,TOTAL 1.1 mg/dL (0.2-1); TOT PROT 7.3 g/dl (6.4-8.2)
[2022-01-29] MEDS: chlordiazePOXIDE HCL 25 MG CAPSULE PO SCH ×2 (17:58→22:26)
[2022-01-29] MEDS: QUEtiapine FUMARATE 100 MG TABLET (FP) PO SCH (22:25)
[2022-01-29] MEDS: MELATONIN 5 MG TABLETS PO SCH (22:26)
[2022-01-29] MEDS: THIAMINE HCL 100 MG TABLET (FP) PO SCH (22:27)
[2022-01-30] MEDS: AMOXICILLIN 500 MG CAPSULE (FP) PO SCH ×3 (05:19→22:17)
[2022-01-30] MEDS: hydrOXYzine PAMOATE 25 MG CAPSULE (FP) PO SCH ×5 (05:19→22:17)
[2022-01-30] MEDS: chlordiazePOXIDE HCL 25 MG CAPSULE PO SCH ×4 (06:15→22:18)
[2022-01-30] MEDS: PRENATAL VITAMINS W/ FOLIC ACID TABLET (FP) PO SCH (10:27)
[2022-01-30] MEDS: QUEtiapine FUMARATE 100 MG TABLET (FP) PO SCH (22:17)
[2022-01-30] MEDS: THIAMINE HCL 100 MG TABLET (FP) PO SCH (22:17)
[2022-01-30] MEDS: MELATONIN 5 MG TABLETS PO SCH (22:17)
[2022-01-31] MEDS: AMOXICILLIN 500 MG CAPSULE (FP) PO SCH ×3 (05:36→22:20)
[2022-01-31] MEDS: hydrOXYzine PAMOATE 25 MG CAPSULE (FP) PO SCH ×5 (07:14→23:21)
[2022-01-31] MEDS: chlordiazePOXIDE HCL 25 MG CAPSULE PO SCH ×4 (07:14→23:22)
[2022-01-31] MEDS: PRENATAL VITAMINS W/ FOLIC ACID TABLET (FP) PO SCH (10:17)
[2022-01-31] MEDS: QUEtiapine FUMARATE 100 MG TABLET (FP) PO SCH (22:20)
[2022-01-31] MEDS: MELATONIN 5 MG TABLETS PO SCH (23:21)
[2022-01-31] MEDS: THIAMINE HCL 100 MG TABLET (FP) PO SCH (23:22)
[2022-02-01] MEDS ORDERED: chlordiazePOXIDE HCL 10 MG CAPSULE PO PRN
[2022-02-01] MEDS ORDERED: chlordiazePOXIDE 5 MG CAPSULE ONE (04:20)
[2022-02-01] MEDS: AMOXICILLIN 500 MG CAPSULE (FP) PO SCH ×3 (05:59→23:00)
[2022-02-01] MEDS: chlordiazePOXIDE HCL 10 MG CAPSULE PO SCH ×4 (05:59→23:48)
[2022-02-01] MEDS: hydrOXYzine PAMOATE 25 MG CAPSULE (FP) PO SCH ×5 (06:00→23:49)
[2022-02-01] MEDS: PRENATAL VITAMINS W/ FOLIC ACID TABLET (FP) PO SCH (10:38)
[2022-02-01] MEDS: QUEtiapine FUMARATE 100 MG TABLET (FP) PO SCH (23:00)
[2022-02-01] MEDS: THIAMINE HCL 100 MG TABLET (FP) PO SCH (23:49)
[2022-02-01] MEDS: MELATONIN 5 MG TABLETS PO SCH (23:49)
[2022-02-02] MEDS: hydrOXYzine PAMOATE 25 MG CAPSULE (FP) PO SCH ×5 (06:45→21:37)
[2022-02-02] MEDS: chlordiazePOXIDE HCL 10 MG CAPSULE PO SCH ×2 (06:47→18:02)
[2022-02-02] MEDS: AMOXICILLIN 500 MG CAPSULE (FP) PO SCH ×3 (06:47→21:36)
[2022-02-02] MEDS: PRENATAL VITAMINS W/ FOLIC ACID TABLET (FP) PO SCH (10:11)
[2022-02-02] MEDS: MELATONIN 5 MG TABLETS PO SCH (21:37)
[2022-02-02] MEDS: QUEtiapine FUMARATE 100 MG TABLET (FP) PO SCH (21:37)
[2022-02-02] MEDS: THIAMINE HCL 100 MG TABLET (FP) PO SCH (21:37)
[2022-02-03] MEDS ORDERED: chlordiazePOXIDE HCL 10 MG CAPSULE PO ONE (05:00)
[2022-02-03] MEDS: AMOXICILLIN 500 MG CAPSULE (FP) PO SCH (05:59)
[2022-02-03] MEDS: hydrOXYzine PAMOATE 25 MG CAPSULE (FP) PO SCH ×2 (06:00→10:53)
[2022-02-03 09:07] VITALS: BP 135/85; PULSE 76; RESP 16; TEMP 97.5
[2022-02-03] MEDS: PRENATAL VITAMINS W/ FOLIC ACID TABLET (FP) PO SCH (10:53)
== END 2022-02-03 09:16 | disposition home or self-care (01) | DRG 774 ==
LOC: YASAS 09:37 → Y3N 12:37
PROVIDERS: ADMIT Allergy & Immunology; ATTEND Surgery
PROC: HZ2ZZZZ Detoxification Services for Substance Abuse Treatment (ICD-10-PCS; principal; 2022-01-29)
DX: F10.230 Alcohol dependence with withdrawal, uncomplicated (principal); F14.20 Cocaine dependence, uncomplicated; F13.10 Sedative, hypnotic or anxiolytic abuse, uncomplicated; F16.20 Hallucinogen dependence, uncomplicated; F12.20 Cannabis dependence, uncomplicated; F17.210 Nicotine dependence, cigarettes, uncomplicated; F19.24 Other psychoactive substance dependence with psychoactive substance-induced mood disorder; I10 Essential (primary) hypertension; K04.7 Periapical abscess without sinus; Z87.828 Personal history of other (healed) physical injury and trauma
CPT/HCPCS: 36415; 80053; 85027; 86780; C9803-CS; U0003; U0005